=== PATIENT | male | born 1980 | race Caucasian/White ===

== ENCOUNTER 2019-10-24 00:13 | Emergency (ER) | payer MEDICAID ==
[~2019-10-24] VITALS: Ht 172.7 cm; Wt 70.3 kg
[~2019-10-24 00:13] MED LIST: NO HOME MEDS
[2019-10-24] MEDS ORDERED: BACDS PO (01:30)
[2019-10-24] MEDS ORDERED: LIDOcaine 1% W/epiNEPHrine 1:100,000 20ml vial SQ ONE (01:35)
[2019-10-24] MEDS ORDERED: sulfamethoxazole/trimethoprim DS (800/160mg) tablet PO ONE (01:50)
[2019-10-24 02:39] VITALS: BP 105/64
== END 2019-10-24 02:40 | disposition home or self-care (01) ==
LOC: ER 00:14
DX: L02.01 Cutaneous abscess of face (principal); J45.909 Unspecified asthma, uncomplicated; F20.9 Schizophrenia, unspecified; F12.90 Cannabis use, unspecified, uncomplicated; Z88.5 Allergy status to narcotic agent; Z88.6 Allergy status to analgesic agent; Z79.2 Long term (current) use of antibiotics
CPT/HCPCS: 10060; 99283

== ENCOUNTER 2021-11-12 08:22 | Emergency (ER) | payer MEDICAID | END 2021-11-12 09:02 | disposition left against medical advice (07) | LOC: ER 08:22 | DX: R11.2 Nausea with vomiting, unspecified (principal); Z53.21 Procedure and treatment not carried out due to patient leaving prior to being seen by health care provider ==